=== PATIENT | female | born 1960 ===

== ENCOUNTER 2024-09-17 13:25 | Emergency (ER) | payer BC ==
[2024-09-17] MEDS ORDERED: Adenosine 12 MG/4 ML SDV ONE (13:31)
[2024-09-17] MEDS ORDERED: Adenosine 6 MG/2 ML SDV ONE (13:31)
[2024-09-17 13:50] LABS: BASOPHILS PERCENT AUTO 0.3 % (0.0-1.0); EOSINOPHILS PERCENT AUTO 3.3 % (1.0-3.0); HEMATOCRIT 42.9 % (37.0-47.0); HEMOGLOBIN 13.9 g/dL (12.0-16.0); LYMPHOCYTES PERCENT AUTO 35.6 % (20.5-50.1); MEAN CORPUSCULAR HEMOGLOBIN 29.8 pg (27.0-34.0); MEAN CORPUSCULAR HGB CONC 32.4 g/dL (33.0-35.0); MEAN CORPUSCULAR VOLUME 92.1 fL (80-100); NEUTROPHILS PERCENT AUTO 53.8 % (42.2-75.2); PLATELET COUNT,PLT 286 10^3/uL (150-450); RED BLOOD CELL COUNT 4.66 10^6/uL (4.2-5.4); WHITE BLOOD CELL COUNT,WBC 11.5 10^3/uL (5.0-10.0)
[2024-09-17 14:05] LABS: A/G RATIO 1.1; ALANINE AMINOTRANSFERASE,ALT 27 U/L (14-59); ALBUMIN 3.9 g/dL (3.4-5.0); ALKALINE PHOSPHATASE 77 U/L (46-116); ANION GAP 13.5 mEq/L (7-13); ASPARTATE AMNIOTRANSFERASE,AST 15 U/L (15-37); BILIRUBIN TOTAL 0.3 mg/dL (0.2-1.0); BLOOD UREA NITROGEN,BUN 19 mg/dL (7-18); BUN/CREATININE RATIO 15.7 (No establ ref range); CALCIUM 8.9 mg/dL (8.5-10.1); CARBON DIOXIDE,CO2 28 mmol/L (21-32); CHLORIDE,CL 101 mmol/L (98-107); CREATININE 1.21 mg/dL (0.55-1.02); GLUCOSE RANDOM 139 mg/dL (70-99); POTASSIUM,K 3.5 mmol/L (3.5-5.1); PROTEIN TOTAL,TP 7.5 g/dL (6.4-8.2); SODIUM,NA 139 mmol/L (136-145)
[2024-09-17 14:08] LABS: ESTIMATED GFR 50 mL/min (>=60)
[2024-09-17 14:13] LABS: B-TYPE NATRIURETIC PEPTIDE,BNP 29 pg/ml (0-100)
[2024-09-17] MEDS: Sodium Chloride 0.9% 1,000 ML IV ONE (14:25)
[2024-09-17 14:27] LABS: PROTHROMBIN TIME 10.7 SEC (9.0-12.0)
[2024-09-17 14:49] LABS: APPEARANCE,URINE CLEAR (CLEAR); BILIRUBIN,URINE NEGATIVE (NEGATIVE); GLUCOSE,URINE NEGATIVE (NEGATIVE); KETONES,URINE NEGATIVE (NEGATIVE); LEUKOCYTE ESTERASE,URINE TRACE (NEGATIVE); NITRITE,URINE NEGATIVE (NEGATIVE); OCCULT BLOOD,URINE NEGATIVE (NEGATIVE); PROTEIN,URINE NEGATIVE (NEGATIVE); UROBILINOGEN,URINE 0.2 mg/dL (0.2-1.0)
[2024-09-17 15:05] LABS: COLOR,URINE STRAW (YELLOW)
[2024-09-17 15:19] LABS: WBC,URINE 0-5 /HPF (0-5/HPF)
[2024-09-17 15:20] LABS: BACTERIA,URINE OCCASIONAL /HPF (0-FEW/HPF); EPITHELIAL CELLS,URINE RARE /HPF (NOT SEEN); MUCUS,URINE RARE /LPF (NOT SEEN); RBC,URINE NOT SEEN /HPF (0-5)
== END 2024-09-17 17:30 ==
LOC: DL.ED 13:25
DX: I47.10 Supraventricular tachycardia, unspecified (principal); N17.9 Acute kidney failure, unspecified
CPT/HCPCS: 36415; 71045; 80053; 81001; 82947; 83735; 83880; 84443; 84484; 85025; 85610; 87086; 93005; 93010; 96360; 99285; 99285-25; J7030